=== PATIENT | female | born 1955 ===

== ENCOUNTER 2018-12-12 05:35 | Day surgery (SDC) | payer OTHER | END 2018-12-12 13:00 | disposition home or self-care (01) | LOC: CIR.AMB 05:35 | DX: N84.0 Polyp of corpus uteri (principal) ==

== ENCOUNTER 2020-02-22 08:32 | Outpatient (CLI) | payer OTHER | END 2020-02-22 14:38 | disposition home or self-care (01) | LOC: LAB 08:32 | PROVIDERS: ATTEND Internal Medicine | DX: Z20.828 Contact with and (suspected) exposure to other viral communicable diseases (principal); I10 Essential (primary) hypertension; E03.8 Other specified hypothyroidism; E78.89 Other lipoprotein metabolism disorders; Z03.818 Encounter for observation for suspected exposure to other biological agents ruled out ==

== ENCOUNTER 2020-02-24 10:45 | Inpatient (IN) | payer OTHER ==
[~2020-02-24] VITALS: Ht 165.1 cm; Wt 69.4 kg
[2020-02-24] MEDS ORDERED: CALTRATE PO (12:28)
[2020-02-24] MEDS ORDERED: ZINC PO (12:29)
[2020-02-24] MEDS ORDERED: GLYCOTROL CAPS1 EACH PO (12:29)
[2020-02-24] MEDS ORDERED: CRESTOR5 MG PO (12:30)
[2020-02-24] MEDS ORDERED: VITAMIN D PO (12:30)
[2020-02-24] MEDS ORDERED: MULTIPLE VITAM1 EACH PO (12:31)
[2020-02-26] MEDS ORDERED: VITAMIN D3250 MC1 (08:26)
[2020-02-26] MEDS ORDERED: TRIPLE ANTIB28.35 GM (08:26)
[2020-02-26] MEDS ORDERED: ANTIFUNGAL113 GM (08:27)
[2020-02-26] MEDS ORDERED: ADVIL200 M1 (08:27)
[2020-02-26] MEDS ORDERED: BENADRYL ITCH28.3 GM (08:27)
[2020-02-26] MEDS ORDERED: SYSTANE 0.3-0.415 ML (08:27)
[2020-02-26] MEDS ORDERED: OMEGA-3 FISH O1 EA11 (08:27)
[2020-02-26] MEDS ORDERED: CENTRUM SILVER1 EAC2 (08:28)
[2020-02-26] MEDS ORDERED: VITAMIN B-122000 MC1 (08:28)
[2020-02-26] MEDS ORDERED: CALCIUM 600-VI1 EAC2 (08:28)
[2020-02-26] MEDS ORDERED: ZINC50 M1 (08:28)
[2020-02-26] MEDS ORDERED: VICKS VAPORUB170 G2 (08:28)
[2020-02-26] MEDS ORDERED: BIOTIN 800 MCG1 EACH (08:30)
[2020-02-26] MEDS ORDERED: VITAMIN C1000 MG (08:30)
[2020-02-26] MEDS ORDERED: E-400400 UNIT (08:30)
== END 2020-02-28 11:04 | disposition home or self-care (01) | DRG 743 ==
LOC: O/R 02-26 05:35 → OB/GYN 02-26 05:35 → O/R 02-26 07:15 → OB/GYN 02-26 14:32
PROVIDERS: ADMIT Obstetrics & Gynecology; ATTEND Obstetrics & Gynecology
PROC: 0UB20ZZ Excision of Bilateral Ovaries, Open Approach (ICD-10-PCS; 2020-02-26)
PROC: 0UB70ZZ Excision of Bilateral Fallopian Tubes, Open Approach (ICD-10-PCS; 2020-02-26)
PROC: 0TNB0ZZ Release Bladder, Open Approach (ICD-10-PCS; 2020-02-26)
PROC: 0UT90ZZ Resection of Uterus, Open Approach (ICD-10-PCS; principal; 2020-02-26 07:15)
DX: D25.0 Submucous leiomyoma of uterus (principal); D25.2 Subserosal leiomyoma of uterus; N83.292 Other ovarian cyst, left side; N83.291 Other ovarian cyst, right side; D25.1 Intramural leiomyoma of uterus; N32.89 Other specified disorders of bladder